=== PATIENT | male | born 1965 | race Caucasian/White ===

== ENCOUNTER 2024-11-27 18:52 | Emergency (ER) | payer OTHER, SELFPAY ==
[2024-11-27 18:54] VITALS: BP 177/100
[2024-11-27 19:13] LABS: Hematocrit 42.1 % (39.0-52.0); Hemoglobin 14.6 g/dL (13.0-18.0); Mean Corp Hgb Conc. 34.7 g/dL (33.0-37.0); Mean Corpuscular Volume 83.2 fL (80.0-94.0); Nucleated Red Blood Cells % 0 % (-); Platelet Count 202 10^3/uL (130-400); Red Cell Dist. Width 12.3 % (11.5-14.5)
[2024-11-27 19:26] LABS: ALT (SGPT) 40 U/L (0-50); AST (SGOT) 35 U/L (17-59); Albumin 4.6 g/dl (3.5-5.0); Alkaline Phosphatase 81 U/L (38-126); Blood Urea Nitrogen 18 mg/dl (9-20); Calcium 9.6 mg/dl (8.4-10.2); Carbon Dioxide 30 mmol/L (22-30); Chloride 109 mmol/L (98-107); Glucose 107 mg/dl (70-99); Lipase 86 U/L (23-300); Potassium 4.9 mmol/L (3.5-5.1); Sodium 143 mmol/L (135-145); Total Protein 7.4 g/dl (6.3-8.2); eGFR > 60.00
[2024-11-27 21:55] VITALS: BMI 28.2
[2024-11-27 22:11] LABS: Urine Character Clear (Clear)
[2024-11-27 22:31] LABS: Urine Red Blood Cell 0-2 /HPF (0-2); Urine Squamous Cell 0-2 /LPF (Few); Urine White Cell 0-2 /HPF (0-5)
--- NOTE | 2024-11-28 00:37 | ED.GENMED ---
History of Present Illness
General
Chief Complaint: Abdominal Pain
Source: patient
Exam Limitations: none
Time Seen by Provider: 11/27/24 21:59
Nursing documentation reviewed up to this point in time: agreed with
History of Present Illness
History of Present Illness:
59-year-old male with past medical history as noted presents to the ER for evaluation of abdominal pain. Patient reports onset of symptoms about a week ago and have been constant since that time. He reports a sensation of bloating and sharp pain
periumbilical region radiates across the abdomen and into the back. He says it is worse with certain positions. No clear relieving factors noted. He denies any associated nausea or vomiting. He denies any constipation or diarrhea. He denies any
dysuria or hematuria. He has not had a fever or chills. He denies similar symptoms in the past. He denies any prior abdominal surgeries. He says he is scheduled for an outpatient ultrasound next week but was concerned that symptoms were not
improving over the weekend which prompted him to come to the ER.
Past History
Past History
ED Past Medical History: CVA (Picked up on MRI), GERD, HTN, Hypercholesterolemia and Other (Crohn's disease)
ED Past Surgical History: Tonsilectomy and Other (Hemorrhoidectomy)
Social History
Tobacco: Non-smoker
Alcohol: None
Drug: None
Personal:
Living: with family
Employment: Not employed
Family History
Family History: Other (Noncontributory)
Review of Systems
Review of Systems
All Other Systems: ROS reviewed and negative except as documented in HPI and ROS
Constitutional: Denies fever or chills
Respiratory: Denies trouble breathing
Cardiac: Denies chest pain
ABD/GI: Reports abdominal pain; Denies nausea, vomiting, diarrhea or constipated
: Denies dysuria, flank pain or dark urine
Neurological: Denies dizzy or headache
Phy Exam
Physical Exam
Physical Exam:
General: Awake, alert, oriented x3; no acute distress
Head: Normocephalic, atraumatic
Eyes: Conjunctiva normal
Throat: Airway intact, handling secretions
Neck: Trachea midline, supple without meningismus
Lungs: Clear to auscultation bilaterally, no wheezing, rales, rhonchi
Heart: Regular rate and rhythm, no murmurs, gallops, or rubs
Abd: Soft, non distended, tender to palpation periumbilical region�he does have palpable abdominal wall hernia that is firm but reducible and tender to touch
Skin: no rash or skin changes in area of concern
Extremities: No edema in extremities, equal pulses in all extremities
Scores
Heart Failure Risk
Heart Failure Risk Score: Not Applicable
Heart Score for Chest Pain Patients
STEMI patient?: Not applicable
Withdrawal Assessment of Alcohol
Withdrawal Assessment Completed?: Not applicable
Course
Orders/Labs/Results
Orders:
Orders
11/27/24 18:56
IV Insert/Care/Rem.- Treatment PRN
11/27/24 19:07
Complete Blood Count/With Diff Urgent
Comprehensive Metabolic Panel Urgent
Lipase Urgent
11/27/24 22:02
Urinalysis Reflex To Culture Urgent
Date Specimen was Collected: 11/27/24
Time Specimen was Collected: 21:53
Urine Microscopic Reflex Cult Urgent
11/27/24 22:48
Lactate Level [Lactic Acid] Urgent
11/28/24 00:02
CT Abd/pelvis W Iv Cont Urgent
Reason For Exam: lower abd pain
11/28/24 01:42
Ketorolac [Toradol] 15 mg IV NOW STA
11/28/24 01:49
Ketorolac [Toradol] 15 mg IV NOW STA
11/28/24 01:50
Ketorolac [Toradol] 15 mg IV NOW STA
Abnormal Lab Results
11/27/24 11/27/24
19:07 22:02
MPV 10.7 H fL
(7.4-10.4)
Chloride 109 H mmol/L
(98-107)
Glucose 107 H mg/dl
(70-99)
Ur Occult Blood Reflex 1+ A
(Negative)
11/27/24 19:07
11/27/24 19:07
Vital Signs
Initial and Last Documented VS:
Initial Vital Signs
Temp Pulse Resp BP Pulse Ox
36.7 C 76 18 177/100 96
11/27/24 18:54 11/27/24 18:54 11/27/24 18:54 11/27/24 18:54 11/27/24 18:54
Last Documented Vital Signs
Temp Pulse Resp BP Pulse Ox
36.7 C 65 20 138/90 98
11/27/24 18:54 11/28/24 01:24 11/28/24 01:24 11/28/24 01:24 11/28/24 01:24
MDM/Problems Addressed
Differential Diagnosis Includes:
Incarcerated hernia, bowel obstruction, cholelithiasis/cholecystitis, appendicitis, nephrolithiasis
MDM/Problems Addressed:
59-year-old male presents for evaluation of abdominal pain as described above�he does have a palpable hernia in the area of concern which was initially firm but ostensibly reducible without significant improvement in pain. He is hypertensive but
otherwise normal vitals. Physical exam as above. He had labs sent in triage including a CBC and a CMP which showed no clinically significant abnormalities. Urinalysis bland. Will plan to check lactate. Will check CT abdomen pelvis. Reassess
after the above.
Lactate normal. CT shows small fat-containing umbilical hernia but no bowel in the hernia and no other acute abnormalities on CT. Will attempt to completely reduce at bedside.
I was able to completely reduce hernia at bedside with resolution of symptoms. Stable for discharge to follow-up with general surgery as outpatient. Spoke about return precautions and follow-up plan and all questions were answered.
Acute Exacerbation and/or Progression of Chronic Illness:
Acute hypertensive
Acute Exacerbation and/or Progression of Chronic Illness: HTN
*Radiology
Radiology exam reviewed: preliminary read by ED provider and radiology read reviewed
*Pulse Oximetry
SaO2: 98
Oxygen Mode of Delivery: Room air
Patient hypoxic: no (98%)
*Critical Care Note
Total Time (30-74mins, 75-104mins- exclusive of procedures): Not Applicable
Data Reviewed
Review of Other/Old Records Reveals: Labs and Records
Source: patient and records
ED Attending Note
-
Portions of this chart may have been created with voice recognition software.� Occasional wrong word or��sound alike� substitutions may have occurred due to the inherent limitations of voice recognition software.
Discharge Plan
Departure
Patient Disposition: Home (Routine Discharge)
Date of Disposition: 11/28/24
Time of Disposition: 02:03
Patient with high blood pressure during this ER visit?: Yes
Discharge Problem:
Hernia, umbilical
Instructions: Abdominal wall hernias
Prescriptions:
No Action
simvastatin 10 MG tablet
10 mg PO HS
trazodone 50 MG tablet
50 mg PO HS
gabapentin 300 MG capsule
300 mg PO BID
Nurtec ODT 75 MG tablet,disintegrating
75 mg sublingual PRN PRN (Reason: migraine)
Patient Comments:
12/06/2020: last filled 11/29/20, 8 tabs for 30 days from [facility]#[id number]
levetiracetam 500 MG tablet
1,000 mg PO BID Qty: 120 0RF
escitalopram oxalate [Lexapro] 5 mg Tablet
5 mg PO DAILY
Referrals:
Rohan Mahajan MD [Active, Surgical] - As needed
Referral Note: General Surgeon
Activity Restrictions/Additional Instructions:
Thank you for visiting the Emergency Department at [facility].
1. Please schedule a follow up appointment as directed. Call first thing tomorrow morning to make an appointment.
2. If indicated, please take your medications as instructed and indicated on discharge paperwork.
3. If any of your symptoms do not improve, or persist, or become more severe within 6-12 hours, please return to the emergency department for further care.
4. Please return to the emergency department if you develop a headache, neck pain/stiffness, fever greater than 100.4F, chest pain, shortness of breath, persistent nausea, vomiting, slurred speech, difficulty walking, numbness/tingling, weakness,
signs of infection or any other symptoms that are worrisome to you.
Please call [phone] if you have any questions.
Interventions
Interventions:
*Risk Screen - Suicide Last Done: 11/27/24 18:54
*General Assessment Last Done: 11/27/24 22:00
*Neglect/Abuse Screening Last Done: 11/27/24 18:54
*ED COVID-19 Vaccine History Last Done: 11/27/24 22:09
BX-Lzhusl-Tzjsorpers Assessment Last Done: 11/27/24 22:10
Discharge Date and Time
Print Language: [id number]
[2024-11-28 01:24] VITALS: BP 138/90
[2024-11-28] MEDS: TORADOL 15 MG IV (01:51)
[2024-11-28 02:18] VITALS: BP 178/98
== END 2024-11-28 02:22 | disposition home or self-care (01) ==
LOC: EMR 18:52
PROVIDERS: Emergency Medicine; EMERGENCY PHYSICIAN Emergency Medicine
DX: K42.9 Umbilical hernia without obstruction or gangrene (principal); E78.00 Pure hypercholesterolemia, unspecified; I10 Essential (primary) hypertension; Z86.73 Personal history of transient ischemic attack (TIA), and cerebral infarction without residual deficits
CPT/HCPCS: 96374; 99284; 74177; 80053; 81003; 81015; 83605; 83690; 85025; Q9967